=== PATIENT | female | born 1970 | race Caucasian/White ===

== ENCOUNTER → 2016-08-27 19:35 | Outpatient (CLI) | payer BC ==
[2016-08-27 21:33] LABS: BASOPHILS 0.6 % (0-2); EOSINOPHILS 2.1 % (0-7); HEMATOCRIT 36.5 % (36.0-48.0); IMMATURE GRANULOCYTES 0.1 % (0-5); LYMPHOCYTES 27.2 % (15-50); MCH 31.1 pg (26.0-34.0); MCHC 32.9 g/dL (31.0-37.0); MCV 94.6 fL (80.0-100.0); MEAN PLATELET VOLUME 11.7 fL (7.4-10.4); MONOCYTES 10.8 % (2-11); NEUTROPHILS 59.2 % (40-80); RBC 3.86 10x6/uL (4.00-5.40); RDW 14.5 % (11.5-14.5); WBC 7.1 10x3/uL (4.8-10.8)
[2016-08-27 21:52] LABS: ANION GAP 16.2 mmol/L (8-16); CALCIUM 8.9 mg/dL (8.5-10.1); CREATININE - SERUM 0.9 mg/dL (0.6-1.3); POTASSIUM - SERUM 4.2 mmol/L (3.5-5.1)
[2016-08-27 22:07] LABS: PLATELET COUNT 225 10x3/uL (130-400)
== END | disposition home or self-care (01) ==
LOC: D.LABREF 19:35
PROVIDERS: Student in an Organized Health Care Education/Training Program
DX: R21 Rash and other nonspecific skin eruption (principal); Z79.2 Long term (current) use of antibiotics

== ENCOUNTER → 2016-09-12 14:56 | Outpatient (CLI) | payer BC | END | disposition home or self-care (01) | LOC: D.LABREF 14:56 | DX: R21 Rash and other nonspecific skin eruption (principal) ==

== ENCOUNTER → 2017-04-16 16:03 | Outpatient (CLI) | payer BC ==
[2017-04-16 19:44] LABS: BASOPHILS 0.4 % (0-2); EOSINOPHILS 0.7 % (0-7); HEMATOCRIT 38.7 % (36.0-48.0); HEMOGLOBIN 12.5 g/dL (12-16); IMMATURE GRANULOCYTES 0.1 % (0-5); LYMPHOCYTES 35.5 % (15-50); MCH 30.3 pg (26.0-34.0); MCHC 32.3 g/dL (31.0-37.0); MCV 93.7 fL (80.0-100.0); MONOCYTES 10.9 % (2-11); NEUTROPHILS 52.4 % (40-80); PLATELET COUNT 293 10x3/uL (130-400); RBC 4.13 10x6/uL (4.00-5.40); RDW 14.1 % (11.5-14.5); WBC 10.6 10x3/uL (4.8-10.8)
[2017-04-16 19:57] LABS: ALBUMIN 4.5 g/dL (3.4-5.0); ALKALINE PHOSPHATASE 77 U/L (46-116); ALT (SGPT) 18 U/L (10-68); BILIRUBIN - TOTAL 0.22 mg/dL (0.2-1.3); CALC OSMOLALITY 284 mosm/kg (275-300); CALCIUM 9.4 mg/dL (8.5-10.1); CARBON DIOXIDE 25.6 mmol/L (21.0-32.0); CHLORIDE - SERUM 105 mmol/L (98-107); CREATININE - SERUM 0.9 mg/dL (0.6-1.3); GLUCOSE 81 mg/dL (74-106); POTASSIUM - SERUM 4.4 mmol/L (3.5-5.1); PROTEIN - SERUM 7.2 g/dL (6.4-8.2); SODIUM 142 mmol/L (136-145); UREA NITROGEN 21 mg/dL (7-18); eGFR NON AFRICAN AMERICAN 71 mL/min (90-120)
[2017-04-16 20:03] LABS: C-REACTIVE PROTEIN < 0.2 mg/dL (0.0-0.9)
[2017-04-16 20:59] LABS: ERYTHROCYTE SEDIMENTATION RATE 115 mm/hr (0-20)
== END | disposition home or self-care (01) ==
LOC: D.LABREF 16:03
PROVIDERS: Student in an Organized Health Care Education/Training Program
DX: M25.50 Pain in unspecified joint (principal); Z51.81 Encounter for therapeutic drug level monitoring; Z79.2 Long term (current) use of antibiotics

== ENCOUNTER → 2018-02-10 13:49 | Outpatient (CLI) | payer BC, MEDICAID ==
[2018-02-10 14:42] LABS: BASOPHILS 0.7 % (0-2); EOSINOPHILS 1.3 % (0-7); HEMATOCRIT 39.2 % (36.0-48.0); HEMOGLOBIN 12.9 g/dL (12-16); IMMATURE GRANULOCYTES 0.6 % (0-5); LYMPHOCYTES 38.9 % (15-50); MCH 30.9 pg (26.0-34.0); MCHC 32.9 g/dL (31.0-37.0); MCV 93.8 fL (80.0-100.0); MONOCYTES 10.8 % (2-11); NEUTROPHILS 47.7 % (40-80); PLATELET COUNT 282 10x3/uL (130-400); RBC 4.18 10x6/uL (4.00-5.40); RDW 14.7 % (11.5-14.5); WBC 8.4 10x3/uL (4.8-10.8)
[2018-02-10 15:21] LABS: CREATININE - SERUM 1.1 mg/dL (0.6-1.3)
== END | disposition home or self-care (01) ==
LOC: D.LABREF 13:49
PROVIDERS: Student in an Organized Health Care Education/Training Program
DX: J02.9 Acute pharyngitis, unspecified (principal); Z51.81 Encounter for therapeutic drug level monitoring; Z79.2 Long term (current) use of antibiotics

== ENCOUNTER → 2018-08-13 10:25 | Outpatient (CLI) | payer BC, MEDICAID ==
[2018-08-13 11:41] LABS: BASOPHILS 0.7 % (0-2); EOSINOPHILS 2.6 % (0-7); HEMOGLOBIN 12.3 g/dL (12-16); MCH 28.7 pg (26.0-34.0); MCHC 31.5 g/dL (31.0-37.0); MCV 90.9 fL (80.0-100.0); MEAN PLATELET VOLUME 11.7 fL (7.4-10.4); MONOCYTES 11.3 % (2-11); NEUTROPHILS 47.4 % (40-80); PLATELET COUNT 275 10x3/uL (130-400); RBC 4.29 10x6/uL (4.00-5.40); RDW 14.8 % (11.5-14.5); WBC 5.4 10x3/uL (4.8-10.8)
== END | disposition home or self-care (01) ==
LOC: D.LABREF 10:25
PROVIDERS: ATTEND Student in an Organized Health Care Education/Training Program
DX: Z51.81 Encounter for therapeutic drug level monitoring (principal); Z79.2 Long term (current) use of antibiotics